=== PATIENT | male | born 1965 | race Caucasian/White ===

== ENCOUNTER → 2018-05-01 | Outpatient (CLI) | payer BC ==
[~2018-05-01] MED LIST: ACET325 PO; ALBU90OI INH; AMYLIPPROD PO; CELE200; CHOL10002; CIMZIA400 MG/2 M SQ; CYCL10 PO; Calicum 500+D1 EACH PO; DIPH50 PO; FAMO40; FAMO40 PO; HYDSUL200 PO; IBUP800 PO; PENVK500 PO; PRED5 PO; Prednisone20 MG PO; SUCR1 PO
== END | disposition home or self-care (01) ==
LOC: LAB SHORT 08:31 → LAB EV 08:31
DX: E11.65 Type 2 diabetes mellitus with hyperglycemia (principal)
CPT/HCPCS: 82043

== ENCOUNTER 2024-01-02 02:50 | Inpatient (IN) | payer MEDICARE, BC ==
[2024-01-02] VITALS (66 sets, daily range): BP systolic 87–172; BP diastolic 62–140
[~2024-01-02] VITALS: Ht 177.8 cm; Wt 93.4 kg
[2024-01-02] MEDS ORDERED: Ipratropium/Albuterol SulF 2.5-0.5MG/3 ML Amp INH ONE (03:00)
[2024-01-02] MEDS ORDERED: Lactated Ringer's 1,000 ML IV SCH ×2 (03:00→05:00)
[2024-01-02 03:05] LABS: Base Excess Venous -18.1 mmol/L; Bicarbonate Venous 12.3 mmol/L (24.0-30.0); PCO2 Venous 24.9 mmHg (38-42); pH Blood Venous 7.21 (7.34-7.37)
[2024-01-02 03:13] LABS: BASOPHILS ABSOLUTE AUTO 0.04 K/mm3 (0.00-0.23); BASOPHILS PERCENT AUTO 0 % (0-2); EOSINOPHILS PERCENT AUTO 0 % (0-6); IMMATURE GRAN ABSOLUTE AUTO 0.17 K/mm3 (0.00-0.10); IMMATURE GRAN PERCENT AUTO 1 % (0-1); LYMPHOCYTES ABSOLUTE AUTO 0.77 K/mm3 (0.84-5.20); LYMPHOCYTES PERCENT AUTO 5 % (21-46); MONOCYTES ABSOLUTE AUTO 1.08 K/mm3 (0.16-1.47); MONOCYTES PERCENT AUTO 7 % (4-13); Mean Corpuscular HGB 33.3 pg (26.0-34.0); Mean Corpuscular HGB Conc 33.3 g/dL (31.5-36.5); Mean Corpuscular Volume 100 fL (80-100); Mean Platelet Volume 9.6 fL (9.1-12.4); NEUTROPHILS ABSOLUTE AUTO 12.78 K/mm3 (1.96-9.15); NEUTROPHILS PERCENT AUTO 86 % (41-73); Platelet Count 310 K/mm3 (150-400); RDW Coefficient Variation 12.3 % (11.7-14.2); RDW Standard Deviation 45.7 fL (35.1-46.3); White Blood Cell Count 14.84 K/mm3 (4.00-11.30)
[2024-01-02] MEDS ORDERED: CefTRIAXone Sodium 1,000 MG in NS 100 ML IV ONE (03:30)
[2024-01-02] MEDS ORDERED: Doxycycline Hyclate 100 MG in Dextrose 5% 250 ML IV ONE (03:30)
[2024-01-02 03:38] LABS: Magnesium, Blood 1.5 mg/dL (1.6-2.4)
[2024-01-02 03:41] LABS: Albumin, Blood 2.3 g/dL (3.4-5.0); Albumin/Globulin Ratio 0.5 (0.8-1.8); Bilirubin, Total 1.1 mg/dL (0.1-1.0); Bun/Creatinine Ratio 19.6 (12.0-20.0); Calcium, Blood 8.8 mg/dL (8.5-10.1); Creatinine, Blood 0.82 mg/dL (0.60-1.20); Globulin, Blood 4.7 g/dL (2.2-4.0); Potassium, Blood 3.6 mmol/L (3.5-5.5)
[2024-01-02] MEDS ORDERED: Magnesium Sulf 2 GM/Water 50ML 50 ML IV ONE (03:45)
[2024-01-02] MEDS ORDERED: NS 1,000 ML IV SCH (03:50)
[2024-01-02] MEDS ORDERED: Potassium Chl 20MEQ/Water100ML 100 ML IV SCH ×2 (03:50→13:00)
[2024-01-02] MEDS ORDERED: Insulin Human Regular 100 UNIT in NS 100 ML IV SCH ×2 (03:50→05:20)
[2024-01-02 04:09] LABS: Influenza A, PCR NEGATIVE (NEGATIVE); Influenza B, PCR NEGATIVE (NEGATIVE); Resp Syncytial Virus, PCR NEGATIVE (NEGATIVE); SARS-Cov-2 (COVID-19) PCR, MMC NEGATIVE (NEGATIVE)
[2024-01-02 04:20] LABS: Beta-hydroxybutyrate 66.9 mg/dL (0.2-2.8)
[2024-01-02] MEDS ORDERED: Acetaminophen 325 MG TABLET PO PRN (04:40)
[2024-01-02] MEDS ORDERED: LORazepam 2 MG/ML 1ML Injection IV PRN ×3 (04:45→12:50)
[2024-01-02] MEDS ORDERED: Dextrose 50% 50 ML Vial IV PRN (04:45)
[2024-01-02] MEDS ORDERED: ChlordiazePOXIDE 25 MG Cap PO PRN ×2 (04:45)
[2024-01-02] MEDS ORDERED: FLU VACC TS2024-25(6MOS UP)/PF 45 MCG/0.5 ML SYRINGE IM SCH (04:45)
[2024-01-02] MEDS ORDERED: Thiamine HCl 100 MG in NS 50 ML IV SCH (05:24)
[2024-01-02] MEDS ORDERED: Folic Acid 1 MG in NS 50 ML IV SCH (05:25)
--- NOTE | 2024-01-02 06:36 | NUR ---
SHIFT SUMMARY PATIENT IN BED WITH GIRLFRIEND BY BED SIDE. HAS O2 4L VIA NC. RIGHT AC IV INFUSING WITH POTASSIUM AND NS. DOXYCYCLINE RUNNING IN LEFT AC IV. A&OX4, RIGHT LUNG COARSE WITH CRACKLES AND LEFT CLEAR UPPER AND DIMINSHED LOWER LOBE. USING BEDSIDE URINAL. SBP 160'S, HR IN 120'S. PATIENT USING BEDSIDE URINAL. CALL LIGHT WITHIN REACH.
[2024-01-02 07:16] LABS: Base Excess Venous -20.2 mmol/L; Bicarbonate Venous 11.3 mmol/L (24.0-30.0); PCO2 Venous 21.6 mmHg (38-42)
[2024-01-02 07:17] LABS: pH Blood Venous 7.18 (7.34-7.37)
--- NOTE | 2024-01-02 07:30 | NUR ---
ASSUME CARE: BEDSIDE REPORT RECIEVED FROM GERMAINE APARICIO. PT A/Ox4, AND PLEASANT W/CARE. PT PLACE ON HIGH FLOW 50 L AT 54%, SPO2>90% RR 30s-40s. PT DESAT TO 86-88s W/ ANY EXCERTION. INSULIN GTT STARTED, SEE TITRATION FLOWSHEET. MONITOR SHOWS SINUS TACH, RATE 130s. SBP 150s, MAP>65. PT USES URINAL AT BEDSIDE. GIRLFRIEND TARYN AT BEDSIDE. WILL UPDATE NEEDED.
[2024-01-02] MEDS ORDERED: Albuterol 2.5 MG/3 ML VIAL INH PRN (07:50)
[2024-01-02 08:00] LABS: Bun/Creatinine Ratio 21.3 (12.0-20.0); Calcium, Blood 8.7 mg/dL (8.5-10.1); Creatinine, Blood 0.8 mg/dL (0.60-1.20); Phosphorus, Blood 3.4 mg/dL (2.5-4.9); Potassium, Blood 4.4 mmol/L (3.5-5.5)
--- NOTE | 2024-01-02 08:32 | NUR ---
ASSUME CARE: BEDSIDE REPORT RECIEVED FROM GERMAINE CAMPBELL. PT INTUBATED ON SPONTANEOUS THROUGHOUT THE NIGHT, RR 20. SPO2> 95%. SEE RT NOTES FOR VENT SETTINGS. PT ALERT TO VERBAL STIMULI, BUT SEEMS MORE TIRED TODAY, ABLE TO TRACK RN AND OBEY COMMANDS AND SHAKE HEAD YES AND NO TO QUESTIONS, ABLE TO MOVE LEFT ARM, BUT NOT SQUEEZE HAND. MONITOR SHOWS SINUS RYTHM W/PVCs RATE 80s. SBP 150s, MAP>65. OG PATENT INFUSING TF AT GOAL. WELLER PATENT DRAINING YELLOW URINE TO GRAVITY. WILL UPDATE NEEDED.
[2024-01-02] MEDS ORDERED: Nicotine 14 MG PATCH TOP SCH (09:00)
[2024-01-02] MEDS ORDERED: Lactobacil 2-S.Thermo-Bifido 1 1 Cap PO SCH (09:00)
[2024-01-02] MEDS ORDERED: Dextrose 5% 1,000 ML IV SCH (09:10)
[2024-01-02] MEDS ORDERED: Amlodipine Bes2.5 MG PO (11:26)
[2024-01-02] MEDS ORDERED: LOSA50 PO (11:27)
[2024-01-02] MEDS ORDERED: SYMBICORT 80-10.2 GM INH (11:41)
[2024-01-02] MEDS ORDERED: HUMALOG KW100 UNIT/1 SQ (11:42)
[2024-01-02] MEDS ORDERED: LANTUS SOL100 UNIT/1 SC (11:43)
[2024-01-02] MEDS ORDERED: Propofol 10mg/ml 20 ml Vial (Procedural) IV ONE (11:59)
[2024-01-02] MEDS ORDERED: LORazepam 2 MG/ML 1ML Injection IV ONE (11:59)
--- NOTE | 2024-01-02 11:59 | NUR ---
UPDATE PT W INCREASED RESP DISTREE SO RT CALLED TO BEDSIDE. RT TITRATING UP FIO2 ON AIRVO. APPROX 20 MIN LATER PT AGAIN IN WORSENING RESP DISTRESS SO PROVIDER CONTACTED AND IS AT BEDSIDE. AWAITING NEW ORDERS. PT W SPO2 87-90 ON AIRVO 50L 95% FIO2.
[2024-01-02 12:09] LABS: Bun/Creatinine Ratio 17.5 (12.0-20.0); Calcium, Blood 8.7 mg/dL (8.5-10.1); Creatinine, Blood 0.86 mg/dL (0.60-1.20); Potassium, Blood 3.5 mmol/L (3.5-5.5)
[2024-01-02] MEDS ORDERED: propofoL 100 ML IV ONE (12:10)
[2024-01-02] MEDS ORDERED: propofoL 100 ML IV SCH (12:15)
--- NOTE | 2024-01-02 12:17 | NUR ---
INTUBATION PT- TIME 1215 TIME OUT PERFORMED 1217 -- 50 MG OF PROPOFOL. PUSH GIVEN BY DR MELGAR 1218-- 50MG OF PROPOFOL IV PUSH OXYGENATION 94% PULSE 127 BP 126/95 [id number] 1220-- 76% BAGGING PT 100% OXYGEN. PEEP VALVE PLACED SAO2 72% BAGGING [id number] BP 145/94 1221--ETT IN/ SIZE: 8.0 ETT AT 26 AT TEETH 1222 30MG PROPOFOL PUSH 1222 2 MG OF ATIVAN GIVEN SAO2 AT 86% BAGGING PT WITH 100% OXYGEN. 1225-- BAGGING PT RATE 25 . OXYGENATION 87% PULSE 131 BP 138/91 OG PLACED. X-RAY TO CONFIRM ONCE PT SET ON VENTILATOR END TIME AT 1227
[2024-01-02] MEDS ORDERED: FentaNYL Citrate 50 MCG/ML 2 ML Injection IV PRN (12:50)
[2024-01-02] MEDS ORDERED: Lidocaine 2% Jelly Uro-Jet UR ONE (13:15)
[2024-01-02 13:42] LABS: PCO2 Arterial 26.1 mmHg (35-45); PO2 Arterial 133 mmHg (80-100); pH Blood Arterial 7.32 (7.35-7.45)
[2024-01-02 14:06] LABS: Source, Urine Foley catheter
[2024-01-02] MEDS ORDERED: Docusate Sodium 100 MG UDC PT PRN (14:35)
[2024-01-02] MEDS ORDERED: Bisacodyl 10 MG Supp PR PRN (14:35)
[2024-01-02] MEDS ORDERED: Magnesium Hydroxide Conc 10 ML UDC PT PRN (14:35)
[2024-01-02 14:36] LABS: Appearance, Urine Hazy (Clear); Bilirubin, Urine Neg (Neg); Blood, Urine 4+ (Neg); Color, Urine Yellow (P-Yellow); Glucose Qualitative, Urine 4+ (Neg); Ketones, Urine 4+ (Neg); Leukocyte Esterase, Urine Neg (Neg); Nitrite, Urine Neg (Neg); Protein, Urine 3+ (Neg); Urobilinogen, Urine 2+ (Normal)
[2024-01-02 14:54] LABS: Squamous Epithelial Cells Not Seen /hpf (Few); White Blood Cells, Urine 0-2 /hpf (0-5)
[2024-01-02 14:55] LABS: Amorphous Light (0-Heavy)
[2024-01-02 14:56] LABS: Bacteria Few /hpf
[2024-01-02] MEDS ORDERED: FentaNYL Citrate 50 MCG/ML 2 ML Injection IV ONE (15:25)
[2024-01-02 15:42] LABS: Calcium, Blood 8.6 mg/dL (8.5-10.1); Creatinine, Blood 0.82 mg/dL (0.60-1.20); Potassium, Blood 3.5 mmol/L (3.5-5.5)
[2024-01-02] MEDS ORDERED: Hydrogen Peroxide 1.5 % Solution MT SCH (16:00)
[2024-01-02] MEDS ORDERED: Potassium Chl 20MEQ/Water100ML 100 ML IV STA (16:16)
[2024-01-02] MEDS ORDERED: D5W-1/2NS KCl 20mEq 1,000 ML IV SCH (16:30)
[2024-01-02 16:36] LABS: Automated BF RBC Count 0.023 M/mm3 (0-0)
[2024-01-02] MEDS ORDERED: Vancomycin HCL 1,500 MG in NS 250 ML IV ONE (16:40)
[2024-01-02 16:47] LABS: Body Fluid WBC Count 110700 /mm3 (0-999); RBC Count, Body Fluid 23000 /mm3 (0-0)
[2024-01-02 17:00] LABS: Glucose, Body Fluid 94 mg/dL
[2024-01-02 17:05] LABS: Lactate Dehydrogenase, Body Fl 2277 U/L; Protein, Body Fluid 5.4 g/dL
[2024-01-02 17:18] LABS: pH, Body Fluid 5.6
--- NOTE | 2024-01-02 18:09 | NUR ---
DAY SHIFT SUMMARY PT BEGAN SHIFT ALERT AND ORIENTED BUT IN SIGNIFICANT RESP DISTRESS WEARING 4L NC. PT PLACED ON AIRVO BY RT WHICH HE TOLERATED FOR SEVERAL HOURS BUT CONTINUED TO HAVE INCREASED WOB. PT BECOMING MORE RESTLESS AND SOB SO PROVIDER CALLED TO BEDSIDE AND DECESION MADE BY DR. MELGAR TO INTUBATE THE PT. PT INTUBATED W 8.0 ET TUBE 26CM AT HIS TEETH. VENT AC/VC 24/500/10 W 60% FIO2. PT HAD CHEST TUBE PLACED THIS SHIFT DRAINING 780ML THIN YELLOW FLUID INTO COLLECTION CHAMBERS. BP WNL AND STABLE THIS SHIFT. PT HAD TEMP WELLER PLACED SHOWING THAT THE PT WAS FEBRILE SO TYLENOL GIVEN PER OG TUBE RESOLVING THE FEVER. PT TACHYCARDIC W HR IN THE 130'S PRIOR TO INTUBATION BUT HIS HR HAS DECREASED CURRENTLY SHOWING SR IN THE 90'S. PT REMAINS ON INSULIN GTT W CBG'S NOW <200 W D5 1/2 NS W KCL INFUSING AT 200 ML/HR. INSULIN GTT STILL INFUSING AT 13 UNITS/HR. REPEAT CHEMISTRY SCHEDULED FOR [address] MELGAR WANTING TO BE NOTIFIED OF THE RESULTS. PT STARTED ON TUBE FEEDS AT 1700 AT 20ML/HR W GOAL RATE OF 45ML/HR. PT HAD LARGE BOWEL MOVEMENT THIS SHIFT. PT'S SIGNIFICANT OTHER AT BEDSIDE ALL SHIFT. WILL REPORT TO ONCOMING RN.
[2024-01-02 18:45] LABS: Total Cell Count, Body Fluid 100
[2024-01-02 18:53] LABS: Color, Body Fluid Yellow (None-Yellow)
[2024-01-02 18:54] LABS: Appearance, Body Fluid Turbid (Clear)
[2024-01-02 19:27] LABS: Bun/Creatinine Ratio 23.6 (12.0-20.0); Calcium, Blood 8.8 mg/dL (8.5-10.1); Creatinine, Blood 0.76 mg/dL (0.60-1.20)
[2024-01-02] MEDS ORDERED: Cetylpyridinium Chloride 1 EA MISC MT SCH (20:00)
--- NOTE | 2024-01-02 20:00 | NUR ---
ASSUMPTION OF CARE PT LYING IN BED VENTILATED AND SEDATED. PROPOFOL INFUSING AT 25 MCG/KG/MIN. FENTANYL PRN FOR PAIN AND SEDATION ADJUNCT. PT NON RESPONSIVE. RASS -3. HR SINUYS RHYTHYM HIGH 90S TO LOW 100S. BP STABLE AT 133/86. VENT SETTINGS: ACVC 500ML 24/MIN 55% AND PEEP OF 10. PT BREATHING AT RATE OF 30. CHEST TUBE IN PLACE DRAINING SEROUS FLUID TO SUCTION. TUBE IS HELD IN PLACE WITH TAPE AND NO SIGNS OF DETACHMENT. PETROLEUM GAUZE AND TAPE AT BEDSIDE. TUBE FEEDS GOING AT 20- GOAL IS 45/HR. BOWEL SOUNDS ARE HYPOACTIVE. TEMP WELLER DRAINING CLEAR YARI URINE TO GRAVITY. D51/2 NS WITH 20 OF KCL INFUSING AT 200ML/HR. DR MELGAR TO BE CALLED WITH MOST RECENT LAB RESULTS.
[2024-01-02] MEDS ORDERED: Potassium Chl 20MEQ/Water100ML 100 ML IV ONE (20:05)
--- NOTE | 2024-01-02 20:30 | NUR ---
UPDATE- CALL TO DR MELGAR REGARDING UPDATED LABS. ORDER FOR 20 KCL IV AND REPEAT CHEM AT MIDNIGHT PLACED.
[2024-01-02] MEDS ORDERED: Doxycycline Hyclate 100 MG in Dextrose 5% 250 ML IV SCH (21:00)
[2024-01-03] VITALS (61 sets, daily range): BP systolic 98–157; BP diastolic 67–878
[2024-01-03 00:50] LABS: Bun/Creatinine Ratio 21.1 (12.0-20.0); Calcium, Blood 8.7 mg/dL (8.5-10.1); Creatinine, Blood 0.67 mg/dL (0.60-1.20); Potassium, Blood 3.7 mmol/L (3.5-5.5)
[2024-01-03 04:26] LABS: BASOPHILS ABSOLUTE AUTO 0.04 K/mm3 (0.00-0.23); BASOPHILS PERCENT AUTO 0 % (0-2); EOSINOPHILS PERCENT AUTO 0 % (0-6); Hematocrit 33.4 % (37.0-53.0); Hemoglobin 11.7 g/dL (13.5-17.5); IMMATURE GRAN ABSOLUTE AUTO 0.05 K/mm3 (0.00-0.10); IMMATURE GRAN PERCENT AUTO 1 % (0-1); LYMPHOCYTES PERCENT AUTO 5 % (21-46); MONOCYTES ABSOLUTE AUTO 1.08 K/mm3 (0.16-1.47); MONOCYTES PERCENT AUTO 10 % (4-13); Mean Corpuscular HGB 33.5 pg (26.0-34.0); Mean Corpuscular Volume 96 fL (80-100); Mean Platelet Volume 9.8 fL (9.1-12.4); NEUTROPHILS ABSOLUTE AUTO 8.91 K/mm3 (1.96-9.15); NEUTROPHILS PERCENT AUTO 84 % (41-73); Platelet Count 267 K/mm3 (150-400); RDW Coefficient Variation 12.4 % (11.7-14.2); RDW Standard Deviation 43.6 fL (35.1-46.3); Red Blood Cell Count 3.49 M/mm3 (4.30-5.90); White Blood Cell Count 10.58 K/mm3 (4.00-11.30)
[2024-01-03 04:49] LABS: Magnesium, Blood 1.8 mg/dL (1.6-2.4)
[2024-01-03 05:45] LABS: Albumin, Blood 1.7 g/dL (3.4-5.0); Albumin/Globulin Ratio 0.4 (0.8-1.8); Bilirubin, Total 0.6 mg/dL (0.1-1.0); Bun/Creatinine Ratio 22.8 (12.0-20.0); Creatinine, Blood 0.57 mg/dL (0.60-1.20); Globulin, Blood 4.1 g/dL (2.2-4.0); Phosphorus, Blood 1.3 mg/dL (2.5-4.9); Potassium, Blood 3.8 mmol/L (3.5-5.5); Total Protein, Blood 5.8 g/dL (6.4-8.2)
[2024-01-03 05:58] LABS: Calcium, Blood 8.8 mg/dL (8.5-10.1)
[2024-01-03] MEDS ORDERED: CefTRIAXone Sodium 1,000 MG in NS 100 ML IV SCH (06:00)
[2024-01-03] MEDS ORDERED: Sodium Phosphate 30 MM in Dextrose 5% 500 ML IV ONE (06:30)
--- NOTE | 2024-01-03 07:31 | NUR ---
SHIFT SUMMARY PT LYING IN BED VENTILATED AND SEDATED. PROPOFOL INFUSING AT 25 MCG/KG/MIN. FENTANYL PRN FOR PAIN AND SEDATION ADJUNCT. PT LIGHTLY RESPONSIVE. RASS -3. HR SINUYS RHYTHYM HIGH 90S TO LOW 100S. BP STABLE THROUGHOUT SHIFT. VENT SETTINGS: ACVC 500ML 24/MIN 40% AND PEEP OF 10. PT BREATHING AT RATE OF 25. POSITIONAL CUFF LEAK REMAINS AN ISSUE, HOWEVER SATURATIONS AND VENT COMPLIANCE (WITH PROOPER SEDATION) ARE GOOD. CHEST TUBE IN PLACE DRAINING SEROUS FLUID TO SUCTION. TOTAL DRAINING FOR SHIFT 250. TOTAL SINCE 1700 YESTERDAY WAS 1030. TUBE IS HELD IN PLACE WITH TAPE AND NO SIGNS OF DETACHMENT. PETROLEUM GAUZE AND TAPE AT BEDSIDE. TUBE FEEDS GOING AT GOAL OF 45/HR. BOWEL SOUNDS ARE HYPOACTIVE. TEMP WELLER DRAINING CLEAR YARI URINE TO GRAVITY. D51/2 NS WITH 20 OF KCL INFUSING AT 200ML/HR. REPORT GIVEN TO ONCOMING NURSE.
[2024-01-03] MEDS ORDERED: Enoxaparin 40 MG/0.4 ML SYR SC SCH (09:00)
[2024-01-03] MEDS ORDERED: Protein Supplement 30 ML UD PT SCH (10:55)
--- NOTE | 2024-01-03 13:52 | NUR ---
ASSUMED CARE PT IS INTUBATED AND SEDATED. DOES NOT OBEY COMMANDS, RESPONDS TO PAINFUL STIMULI. SATS IN THE 90'S, VENT SETTINGS AC/VC 24/500/10/40%. OCCASSIONAL CUFF LEAK PRESENT AND PROVIDER AWARE. L/S COARSE AND CRACKLES T/O. CHEST TUBE IN PLACE ON R SIDE, PATENT AND DRAINING. SET UP TO SUCTION. NO KINKS UPON ASSESSMENT. ON CONTINUOUS CARDIAC MONITORING, HR IN THE 80-90'S. MAPS > 65. OGT IN PLACE WITH TF RUNNING AT GOAL RATE OF 45ML/HR. WELLER PATENT AND DRAINING TO GRAVITY. INSULIN, PROPOFOL, AND D5 1/2 KCL INFUSING. PERFORMED SEDATION VACATION- PT WAS ABLE TO FOLLOW COMMANDS, HE BECAME TACHYPNEIC WITH RR IN THE 40'S AND BEGAN COUGHING, NOT TOLERATING VENT, PT WAS RESEDATED AFTER APPROX 15 MINS. AND IS NOW TOLERATING VENT, RASS OF -2.
[2024-01-03 14:42] LABS: Bun/Creatinine Ratio 26.7 (12.0-20.0); Calcium, Blood 8.6 mg/dL (8.5-10.1); Creatinine, Blood 0.56 mg/dL (0.60-1.20); Magnesium, Blood 2.1 mg/dL (1.6-2.4); Phosphorus, Blood 2.1 mg/dL (2.5-4.9); Potassium, Blood 3.3 mmol/L (3.5-5.5)
[2024-01-03] MEDS ORDERED: Potassium Phosphate Dibasic 30 MM in Dextrose 5% 500 ML IV ONE (15:25)
--- NOTE | 2024-01-03 17:29 | NUR ---
SHIFT SUMMARY PT IS INTUBATED AND SEDATED, RESPONSIVE TO VERBAL STIMULI, FOLLOWING COMMANDS INTERMITTENLY. VENT SETTINGS 24/500/5/35%, SATS IN THE 90'S. L/S COARSE T/O. ON CONTINUOUS PODIATRIC MEDICINE DOCTOR, HR 80-90'S. MAPS > 65. CHEST TUBE PATENT AND DRAINING. WELLER PATENT AND DRAINING TO GRAVITY. R PICC ACCESS, INFUSING PROPOFOL, INSULIN AND K PHOS. TF INFUSING AT GOAL OF 45ML/HR. NO ACUTE EVENTS THIS SHIFT.
--- NOTE | 2024-01-03 21:27 | NUR ---
ASSUMPTION OF CARE PT LYING IN BED VENTILATED AND SEDATED. PROPOFOL INFUSING AT 25 MCG/KG/MIN. FENTANYL PRN FOR PAIN AND SEDATION ADJUNCT. PT RESPONSIVE TO PAIN. RASS -3. HR SINUYS RHYTHYM 80'S AND 90'S. BP STABLE 128/82 (95). VENT SETTINGS: ACVC 500ML 24/MIN 35% AND PEEP OF 5, PRODUCING 95% SATURATION. PT BREATHING AT RATE OF 25. POSITIONAL CUFF LEAK REMAINS AN ISSUE, HOWEVER SATURATIONS AND VENT COMPLIANCE (WITH PROOPER SEDATION) ARE GOOD. CHEST TUBE IN PLACE DRAINING SEROUS FLUID TO SUCTION. TUBE IS HELD IN PLACE WITH TAPE AND NO SIGNS OF DETACHMENT. PETROLEUM GAUZE AND TAPE AT BEDSIDE. TUBE FEEDS GOING AT GOAL OF 45/HR. BOWEL SOUNDS NORMOACTIVE. TEMP WELLER DRAINING CLEAR YELLOW URINE TO GRAVITY. KPHOS INFUSING AT 100ML/HR. REPEAT MAG AND PHOS AT 2200.
[2024-01-03 22:37] LABS: Phosphorus, Blood 2.4 mg/dL (2.5-4.9); Potassium, Blood 3.7 mmol/L (3.5-5.5)
[2024-01-03] MEDS ORDERED: Potassium Chl 20MEQ/Water100ML 100 ML IV ONE (23:00)
[2024-01-04] VITALS (76 sets, daily range): BP systolic 104–214; BP diastolic 72–122
[2024-01-04 04:31] LABS: BASOPHILS ABSOLUTE AUTO 0.01 K/mm3 (0.00-0.23); BASOPHILS PERCENT AUTO 0 % (0-2); EOSINOPHILS ABSOLUTE AUTO 0.03 K/mm3 (0.00-0.68); EOSINOPHILS PERCENT AUTO 0 % (0-6); Hematocrit 29.4 % (37.0-53.0); Hemoglobin 10.3 g/dL (13.5-17.5); IMMATURE GRAN ABSOLUTE AUTO 0.21 K/mm3 (0.00-0.10); IMMATURE GRAN PERCENT AUTO 2 % (0-1); LYMPHOCYTES ABSOLUTE AUTO 0.92 K/mm3 (0.84-5.20); LYMPHOCYTES PERCENT AUTO 9 % (21-46); MONOCYTES PERCENT AUTO 8 % (4-13); Mean Corpuscular HGB 33.8 pg (26.0-34.0); Mean Corpuscular Volume 96 fL (80-100); Mean Platelet Volume 10.2 fL (9.1-12.4); NEUTROPHILS ABSOLUTE AUTO 8.61 K/mm3 (1.96-9.15); NEUTROPHILS PERCENT AUTO 81 % (41-73); Platelet Count 287 K/mm3 (150-400); RDW Coefficient Variation 12.6 % (11.7-14.2); RDW Standard Deviation 44.9 fL (35.1-46.3); Red Blood Cell Count 3.05 M/mm3 (4.30-5.90); White Blood Cell Count 10.68 K/mm3 (4.00-11.30)
[2024-01-04 05:46] LABS: Bun/Creatinine Ratio 30.9 (12.0-20.0); Calcium, Blood 8.3 mg/dL (8.5-10.1); Creatinine, Blood 0.55 mg/dL (0.60-1.20); Magnesium, Blood 1.9 mg/dL (1.6-2.4); Phosphorus, Blood 2.1 mg/dL (2.5-4.9); Potassium, Blood 3.7 mmol/L (3.5-5.5)
[2024-01-04] MEDS ORDERED: Potassium Chl 20MEQ/Water100ML 100 ML IV ONE (05:55)
[2024-01-04] MEDS ORDERED: Potassium Phosphate Dibasic 20 MM in Dextrose 5% 500 ML IV ONE (05:55)
--- NOTE | 2024-01-04 07:17 | NUR ---
SHIFT SUMMARY PT LYING IN BED VENTILATED AND SEDATED. PROPOFOL INFUSING AT 40 MCG/KG/MIN. FENTANYL PRN FOR PAIN AND SEDATION ADJUNCT. PT RESPONSIVE TO PAIN AND OCCASIONALLY OPENS EYES TO VOICE OR MOVEMENT. RASS -2. HR SINUYS RHYTHYM 80'S AND 90'S. BP STABLE 118/72 (85). VENT SETTINGS: ACVC 500ML 24/MIN 35% AND PEEP OF 5, PRODUCING 95% SATURATION. PT BREATHING AT RATE OF 25. POSITIONAL CUFF LEAK REMAINS AN ISSUE, THOUGH IMPROVED FROM PREVIOUS NIGHT, AND SATURATIONS/ VENT COMPLIANCE (WITH PROOPER SEDATION) ARE ACCEPTABLE. CHEST TUBE IN PLACE DRAINING SEROUS FLUID TO SUCTION. TUBE IS HELD IN PLACE WITH TAPE AND NO SIGNS OF DETACHMENT. PETROLEUM GAUZE AND TAPE AT BEDSIDE. 110ML FOR SHIFT. TUBE FEEDS GOING AT GOAL OF 45/HR. BOWEL SOUNDS NORMOACTIVE. PT HAD LARGE BOWEL MOVEMENT AROUND 0200. TEMP WELLER DRAINING YARI URINE TO GRAVITY. INSULIN INFUSING AT 9 UNITS/HR. ELECTROLYTE REPLACEMENTS ORDERED FOLLOWING MORNING LABS. REPORT GIVEN TO ONCOMING NURSES.
[2024-01-04] MEDS ORDERED: Thiamine HCl 100 MG Tab PT SCH (09:00)
[2024-01-04] MEDS ORDERED: Folic Acid 1 MG TAB PT SCH (09:00)
--- NOTE | 2024-01-04 10:00 | NUR ---
ASSUMED CARE PT IS INTUBATED AND SEDATED, RESPONDING TO VERBAL AND PAINFUL STIMULI. VENT SETTINGS AC/VC 24/500/5/35%, SATS IN THE 90'S. CHEST TUBE PATENT AND DRAINING, SET TO SUCTION, NO CREPITUS. ON CONTINUOUS SWITCHBOARD OPERATOR SUPERVISOR, HR 80-90'S. MAPS > 65. TF RUNNING AT GOAL RATE. WELLER PATENT AND DRAINING. INSULIN, PROPOFOL INFUSING TO PICC.
[2024-01-04] MEDS ORDERED: CefTRIAXone Sodium 1,000 MG in NS 100 ML IV ONE (10:15)
--- NOTE | 2024-01-04 10:58 | NUR ---
Pt. is intubated and is basically not responsive. Spouse is at bedside and welcomes my visit. Spouse is pleasant. Facilitated a life review and considered matters of the Pts. mayo and his past. Listened with interest and empathy. Considered matters of mayo and belief and learned of some of the recent mayo concerns of the pt. Prayed for the Pt. with the spouses permission. Spouse verbalized gratitude for the spiritual care visit and welcomed this desk representative to return.
[2024-01-04] MEDS ORDERED: Sodium Phosphate Mono/Dibasic 250 MG Tab PO SCH (11:00)
[2024-01-04] MEDS ORDERED: LORazepam 2 MG/ML 1ML Injection IV SCH (12:00)
[2024-01-04] MEDS ORDERED: Protein Supplement 30 ML UD PT SCH (14:00)
[2024-01-04] MEDS ORDERED: ALTEPLASE XX SCH (14:05)
[2024-01-04] MEDS ORDERED: DORNASE ALFA XX SCH (14:05)
[2024-01-04] MEDS ORDERED: SODIUM CHLORIDE XX SCH (14:05)
[2024-01-04] MEDS ORDERED: NS 50 ML IV SCH (14:10)
--- NOTE | 2024-01-04 17:32 | NUR ---
SHIFT SUMMARY PT IS INTUBATED AND SEDATED, RESPONDING TO PAINFUL STIMULI. VENT SETTINGS 24/500/5/35% SATS IN THE 90'S. CHEST TUBE WAS CLAMPED AT 1500 FOR TWO HOURS WITH 100ML OF TPA/NS SOLUTION. CHEST TUBE IS NOW UNCLAMPED AND DRAINING. ON CONTINUOUS CHARGE NURSE, HR 90'S, MAPS > 65. WELLER PATENT AND DRAINING TO GRAVITY. TF RUNNING AT GOAL RATE OF 35ML/HR. Q2 CBG CHECKS, INSULIN AND PROPOFOL INFUSING. BILAT SWR IN PLACE. NO ACUTE EVENTS THIS SHIFT.
--- NOTE | 2024-01-04 19:22 | NUR ---
ASUMPTION OF CARE PT LYING IN BED VENTILATED AND SEDATED. PROPOFOL INFUSING AT 45 MCG/KG/MIN. FENTANYL PRN FOR PAIN AND SEDATION ADJUNCT. PT RESPONSIVE TO PAIN BUT DOES NOT FOLLOW COMMANDS. RASS -3. HR SINUYS RHYTHYM 80'S AND 90'S. BP STABLE 130/83 (96). VENT SETTINGS: ACVC 500ML 24/MIN 35% AND PEEP OF 5, PRODUCING 95% SATURATION. PT BREATHING AT RATE OF 27. POSITIONAL CUFF LEAK QUIET AT THIS TIME. CHEST TUBE IN PLACE DRAINING BROWN SEROUS FLUID TO SUCTION. SEMI SOLID RED EXUDATE CAN BE SEEN IN THE TUBE. TUBE IS HELD IN PLACE WITH TAPE AND NO SIGNS OF DETACHMENT. PETROLEUM GAUZE AND TAPE AT BEDSIDE. TUBE FEEDS, SWITCHED TODAY FROM PIVOT TO GLUCERNA 1.2, GOING AT GOAL OF 45/HR. BOWEL SOUNDS HYPOACTIVE AND ABDOMEN MOD DISTENDED. TEMP WELLER DRAINING YARI URINE TO GRAVITY. INFULSIN INFUSING AT 4.6 UNITS /HR WITH Q 1 HOUR POC GLUCOSE CHECKS.
[2024-01-05] VITALS (60 sets, daily range): BP systolic 99–149; BP diastolic 53–107
--- NOTE | 2024-01-05 02:47 | NUR ---
NEW CHEST TUBE CONTAINER CHANGED CHEST TUBE CONTAINER AT 0020 ON 01/05/24 WITH 350 COLLECTED SINCE 1900 ON 01/04/24
[2024-01-05 03:43] LABS: BASOPHILS ABSOLUTE AUTO 0.03 K/mm3 (0.00-0.23); BASOPHILS PERCENT AUTO 0 % (0-2); EOSINOPHILS ABSOLUTE AUTO 0.05 K/mm3 (0.00-0.68); EOSINOPHILS PERCENT AUTO 1 % (0-6); Hematocrit 31.5 % (37.0-53.0); IMMATURE GRAN ABSOLUTE AUTO 0.51 K/mm3 (0.00-0.10); IMMATURE GRAN PERCENT AUTO 5 % (0-1); LYMPHOCYTES ABSOLUTE AUTO 1.18 K/mm3 (0.84-5.20); LYMPHOCYTES PERCENT AUTO 11 % (21-46); MONOCYTES ABSOLUTE AUTO 0.96 K/mm3 (0.16-1.47); MONOCYTES PERCENT AUTO 9 % (4-13); Mean Corpuscular HGB 33.3 pg (26.0-34.0); Mean Corpuscular HGB Conc 34.9 g/dL (31.5-36.5); Mean Corpuscular Volume 96 fL (80-100); NEUTROPHILS ABSOLUTE AUTO 8.33 K/mm3 (1.96-9.15); NEUTROPHILS PERCENT AUTO 75 % (41-73); Platelet Count 325 K/mm3 (150-400); RDW Standard Deviation 45.3 fL (35.1-46.3); White Blood Cell Count 11.06 K/mm3 (4.00-11.30)
[2024-01-05 04:08] LABS: Bun/Creatinine Ratio 32.2 (12.0-20.0); Calcium, Blood 8.2 mg/dL (8.5-10.1); Creatinine, Blood 0.62 mg/dL (0.60-1.20); Magnesium, Blood 1.9 mg/dL (1.6-2.4); Phosphorus, Blood 3.8 mg/dL (2.5-4.9); Potassium, Blood 3.7 mmol/L (3.5-5.5)
[2024-01-05] MEDS ORDERED: CefTRIAXone Sodium 2,000 MG in NS 100 ML IV SCH (09:00)
[2024-01-05] MEDS ORDERED: NS 50 ML IV SCH (09:25)
[2024-01-05] MEDS ORDERED: DORNASE ALFA XX SCH (09:25)
[2024-01-05] MEDS ORDERED: ALTEPLASE XX SCH (09:25)
[2024-01-05] MEDS ORDERED: SODIUM CHLORIDE XX SCH (09:25)
--- NOTE | 2024-01-05 10:23 | NUR ---
"Spiritual Care | Family Request At the request of the Pts. SO this steamship agent came to bedside. facilitated an update of the Pts. condietion, and the SO verbalized of complications of other care giving in their home. Listened with empathy and pastoral care. Nurse Shruti is also present and supportive. At request of SO Prayers are given for the Pt. So verbalized gratitude for the spiritual care support. Will remain available to the Pt. and family."
--- NOTE | 2024-01-05 13:56 | NUR ---
Spiritual Care follow up Pt. is intubated and mostly not repsonsive. Spouse is at bedside. As this e commerce strategist sat with spouse she displayed evidence of some anxiety over the two potential care plans for the Pt. Seek to normalize the Pt. experience as I listen with empathy and a calming presence. Shared significant life review stories. Spouse verbalized gratitude for the time spent with her at bedside.
--- NOTE | 2024-01-05 15:21 | NUR ---
PREPARING PATIENT FOR TRANSPORT TO [facility]. S/O TARYN HAS TAKEN ALL HIS BELONGINGS WITH HER. SHE REQUESTS NO VISITORS NOW THAT SHE HAS GONE. REQUESTS NO INFORMATION GIVEN TO ANY VISITORS UP AT [facility].
--- NOTE | 2024-01-05 16:55 | NUR ---
GAVE REPORT TO REACH TRANSPORT CREW AND ASSISTED LOADING PATIENT [facility] [place] AND TRANSFERRING TO THEIR EQUIPMENT. THEY LEFT APPROXIMATELY 1620 AND I CALLED AND GAVE REPORT TO GERMANIE LONGORIA AT [facility] FOR ROOM [id number].
[2024-01-05] MEDS ORDERED: Insulin Regular 100 UNIT/ML 10ML Vial SC SCH (18:00)
== END 2024-01-05 16:24 | disposition short-term general hospital (02) | DRG 871 ==
LOC: ER 02:50 → ICUE 04:40
PROVIDERS: Emergency Medicine; Internal Medicine Critical Care Medicine; ADMIT Student in an Organized Health Care Education/Training Program
PROC: 0BH17EZ Insertion of Endotracheal Airway into Trachea, Via Natural or Artificial Opening (ICD-10-PCS; principal; 2024-01-02)
PROC: 5A1935Z Respiratory Ventilation, Less than 24 Consecutive Hours (ICD-10-PCS; 2024-01-02)
PROC: 0W9930Z Drainage of Right Pleural Cavity with Drainage Device, Percutaneous Approach (ICD-10-PCS; 2024-01-02)
PROC: 3E03329 Introduction of Other Anti-infective into Peripheral Vein, Percutaneous Approach (ICD-10-PCS; 2024-01-02)
PROC: 4A033R1 Measurement of Arterial Saturation, Peripheral, Percutaneous Approach (ICD-10-PCS; 2024-01-02)
PROC: 3E0L317 Introduction of Other Thrombolytic into Pleural Cavity, Percutaneous Approach (ICD-10-PCS; 2024-01-04)
PROC: 3E0L3GC Introduction of Other Therapeutic Substance into Pleural Cavity, Percutaneous Approach (ICD-10-PCS; 2024-01-04)
PROC: 3E0L317 Introduction of Other Thrombolytic into Pleural Cavity, Percutaneous Approach (ICD-10-PCS; 2024-01-05)
PROC: 3E0L3GC Introduction of Other Therapeutic Substance into Pleural Cavity, Percutaneous Approach (ICD-10-PCS; 2024-01-05)
DX: A40.3 Sepsis due to Streptococcus pneumoniae (principal); E10.10 Type 1 diabetes mellitus with ketoacidosis without coma; J86.9 Pyothorax without fistula; J13 Pneumonia due to Streptococcus pneumoniae; R65.20 Severe sepsis without septic shock; J96.01 Acute respiratory failure with hypoxia; J91.8 Pleural effusion in other conditions classified elsewhere; J44.0 Chronic obstructive pulmonary disease with (acute) lower respiratory infection; E87.4 Mixed disorder of acid-base balance; F10.139 Alcohol abuse with withdrawal, unspecified; M06.9 Rheumatoid arthritis, unspecified; K21.9 Gastro-esophageal reflux disease without esophagitis; E87.6 Hypokalemia; E83.39 Other disorders of phosphorus metabolism; F17.210 Nicotine dependence, cigarettes, uncomplicated; Z86.73 Personal history of transient ischemic attack (TIA), and cerebral infarction without residual deficits; Z88.2 Allergy status to sulfonamides; Z88.5 Allergy status to narcotic agent; Z88.8 Allergy status to other drugs, medicaments and biological substances
CPT/HCPCS: 0241U; 31500; 36415; 36569; 36600; 51702; 71045; 71250; 71260; 80048; 80053; 81001; 82010; 82803; 82945; 82947; 83605; 83615; 83735; 83880; 83986; 84100; 84132; 84145; 84157; 84484; 85025; 87040; 87070; 87075; 87077; 87205; 88108; 88305; 89051; 93005; 93010; 93306; 94002; 94003; 94640; 94664; 94762; 96361; 96365; 96368; 96375; 99285-25; A9270; C1751; C1894; J0696; J1650; J1815; J2060; J2704; J2997; J3010; J3370; J3411; J3475; J3480; J7030; J7050; J7060; J7070; J7120; Q9967